=== PATIENT | female | born 2000 | race Caucasian/White ===

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

== ENCOUNTER 2021-09-18 19:03 | Emergency (ER) | payer MEDICAID ==
[2021-09-18] MEDS ORDERED: PROCHLORPERAZINE 10 MG/2ML INJ (COMPAZINE) IM ONE (19:15)
[2021-09-18] MEDS ORDERED: diphenhydrAMINE 50 MG/ML INJ (BENADRYL) IM ONE (19:15)
[2021-09-18] MEDS ORDERED: KETOROLAC 30 MG/ML VIAL IM ONE (19:15)
--- NOTE | 2021-09-18 19:16 | ED Cough/URI ---
General Chief Complaint: COVID19 Suspect/Confirmed Stated Complaint: MIGRAINE,BODY ACHES,NAUSEA Source: patient Exam Limitations: no limitations History of Present Illness Date Seen by Provider: Sep 18, 2021 Time Seen by Provider: 17:14 Initial Comments 21-year-old female with no pertinent past medical history coming in due to generalized body aches, elevated tactile temperature, nausea that all started today. Family member was diagnosed with COVID yesterday, the patient became symptomatic today. She has not been tested yet. Has never had COVID that she knows of and has not been vaccinated. Denies any chest pain, shortness of breath, severe abdominal pain, vomiting, diarrhea, weakness, numbness, dysuria, rash, or any other concerns. Has been eating and drinking less today. Took Tylenol this morning around 8 AM but has not had any other medications besides that. LMP was today Allergies and Home Medications Allergies Coded Allergies: No Known Drug Allergies (Unverified , 08/15/18) Patient Home Medication List Home Medication List Reviewed: Yes Cefdinir (Cefdinir) 300 Mg Capsule, 300 MG PO BID Prescribed by: CATRACHITO OLEARY on 09/18/211946 Divalproex Sodium (Divalproex Sodium) 250 Mg Tablet.dr (Reported) Entered as Reported by: RENNY MOLINA on 10/15/20 153 Metronidazole (Metronidazole) 500 Mg Tablet, 500 MG PO BID Prescribed by: ADRIEN BARDALES on 10/15/20 162 Promethazine HCl (Promethazine Tablet) 25 Mg Tablet, 25 MG PO Q6H PRN for NAUSEA/VOMITING Prescribed by: CATRACHITO OLEARY on 09/18/211946 Review of Systems Review of Systems Constitutional: chills, malaise EENTM: No blurred vision Respiratory: No cough Cardiovascular: No chest pain Gastrointestinal: No abdominal pain; nausea; No vomiting Genitourinary: no symptoms reported Musculoskeletal: other (Myalgias and body aches) Skin: No rash Psychiatric/Neurological: No Symptoms Reported Hematologic/Lymphatic: No Symptoms Reported Immunological/Allergic: no symptoms reported All Other Systems Reviewed Negative Unless Noted: Yes Past Ozipnnb-Yvfxbo-Nbfnbw Hx Patient Social History Tobacco Use?: Yes Tobacco type used: Cigarettes Smoking Status: Current Everyday Smoker Use of E-Cig and/or Vaping dev: No Substance use?: No Alcohol Use?: No Pt feels they are or have been: No Seasonal Allergies Seasonal Allergies: No Past Medical History Surgery/Hospitalization HX: Depression, UTI's Surgeries: No Respiratory: No Cardiac: No Neurological: No Genitourinary: No Gastrointestinal: No Musculoskeletal: No Endocrine: No HEENT: No Cancer: No Psychosocial: No Integumentary: No Blood Disorders: No Physical Exam Vital Signs - First Documented 09/18/21 19:06 Temp 37.7 Pulse 126 Resp 18 B/P (MAP) 104/55 (71) Pulse Ox 97 O2 Delivery Room Air Capillary Refill : Height: 5'4.00" Weight: 198lbs. oz. 89.245856ym; 36.00 BMI Method:Stated General Appearance: WD/WN, no apparent distress Eyes: Bilateral Eye Normal Inspection HEENT: PERRL/EOMI, normal ENT inspection, pharynx normal Neck: non-tender, full range of motion, supple, normal inspection Respiratory: chest non-tender, lungs clear, normal breath sounds, no respiratory distress, no accessory muscle use Cardiovascular: no edema, no murmur, tachycardia Gastrointestinal: normal bowel sounds, non tender, soft; No distended, No guard ing, No rebound Extremities: normal range of motion, non-tender, normal inspection, no pedal edema, no calf tenderness, normal capillary refill Neurologic/Psychiatric: no motor/sensory deficits, alert, normal mood/affect Skin: normal color, warm/dry Lymphatic: no adenopathy Progress/Results/Core Measures Suspected Sepsis SIRS Temperature: Pulse: Respiratory Rate: Blood Pressure / Mean: Results/Orders Lab Results Laboratory Tests Test 09/18/21 19:13 09/18/21 19:18 Range/Units Influenza Type A (RT-PCR) Not Detected Not Detecte Influenza Type B (RT-PCR) Not Detected Not Detecte SARS-CoV-2 RNA (RT-PCR) Not Detected Not Detecte Urine Color DK YELLOW Urine Clarity SL CLOUDY Urine pH 7.5 5-9 Urine Specific [place] 1.015 L 1.016-1.022 Urine Protein TRACE H NEGATIVE Urine Glucose (UA) NEGATIVE NEGATIVE Urine Ketones 3+ H NEGATIVE Urine Nitrite NEGATIVE NEGATIVE Urine Bilirubin 1+ H NEGATIVE Urine Urobilinogen 2.0 < = 1.0 MG/DL Urine Leukocyte Esterase 1+ H NEGATIVE Urine RBC (Auto) 2+ H NEGATIVE Urine RBC 10-25 H /HPF Urine WBC 25-50 H /HPF Urine Squamous Epithelial Cells 2-5 /HPF Urine Crystals NONE /LPF Urine Bacteria FEW H /HPF Urine Casts NONE /LPF Urine Mucus SMALL H /LPF Urine Culture Indicated YES My Orders Orders - CATRACHITO OLEARY MD Urine Bedside (09/18/21 19:07) Influenza A And B By Pcr (09/18/21 19:07) Covid 19 Inhouse Test (09/18/21 19:07) Ketorolac Injection (Toradol Injection) (09/18/21 19:15) Prochlorperazine Injection (Compazine In (09/18/21 19:15) Diphenhydramine Injection (Benadryl Inje (09/18/21 19:15) Ua Culture If Indicated (09/18/21 19:16) Urine Culture (09/18/21 19:18) Cefdinir Capsule (Omnicef Capsule) (09/18/21 20:00) Medications Given in ED Current Medications Medications Dose Ordered Sig/Zach Route Start Time Stop Time Status Last Admin Dose Admin Diphenhydramine HCl 25 mg ONCE ONCE IM 09/18/21 19:15 09/18/21 19:16 DC 09/18/21 19:19 25 MG Ketorolac Tromethamine 15 mg ONCE ONCE IM 09/18/21 19:15 09/18/21 19:16 DC 09/18/21 19:18 15 MG Prochlorperazine Edisylate 10 mg ONCE ONCE IM 09/18/21 19:15 09/18/21 19:16 DC 09/18/21 19:19 10 MG Vital Signs/I&O 09/18/21 19:06 Temp 37.7 Pulse 126 Resp 18 B/P (MAP) 104/55 (71) Pulse Ox 97 O2 Delivery Room Air Capillary Refill : Progress Note : Progress Note 21-year-old female coming in with body aches and general flulike illness symptoms. ABCs were intact and vital stable on presentation although she is mildly tachycardic. She was given IM injections for headache and body aches and symptoms have improved somewhat. test is negative, urinalysis concerning for potential infection so she will be given cefdinir. COVID and flu testing negative, but her symptoms just started and I think with a positive household member I think it is likely she is actually positive. Departure Impression Primary Impression: Influenza-like symptoms Additional Impression: Cystitis Disposition: 01 HOME, SELF-CARE Condition: Stable Departure-Patient Inst. Decision time for Depature: 19:45 Referrals: KATE FORD (PCP) Primary Care Physician [facility] (Family) Primary Care Physician Patient Instructions: Urinary Tract Infections in Adults Add. Discharge Instructions: Your COVID test today is negative and so was your flu test. Your urinalysis does look concerning for infection which can cause flulike symptoms as well. You will be On antibiotics for the next week. It is still very possible that you have COVID and potentially just tested too early. I would take Tylenol or ibuprofen as needed for fever and body aches. Scripts Promethazine HCl (Promethazine Tablet) 25 Mg Tablet 25 MG PO Q6H PRN for NAUSEA/VOMITING for 5 Days, #20 TAB Prov: CATRACHITO OLEARY MD 09/18/21 Cefdinir (Cefdinir) 300 Mg Capsule 300 MG PO BID for 5 Days, #10 CAP 0 Refills Prov: CATRACHITO OLEARY MD 09/18/21 Work/School Note: Work Release Form Date Seen in the Emergency Department: Sep 18, 2021 Return to Work: Sep 23, 2021 Restrictions: Return-No Fever (24hrs), Return-No Vomiting(24hrs) CATRACHITO OLEARY MD Sep 18, 2021 19:16
[2021-09-18 19:21] LABS: CLARITY,URINE SL CLOUDY; GLUCOSE, URINE (UA) NEGATIVE (NEGATIVE); KETONES,URINE 3+ (NEGATIVE); LEUKOCYTE ESTERASE ,URINE 1+ (NEGATIVE); NITRITE,URINE NEGATIVE (NEGATIVE); PH,URINE 7.5 (5-9); PROTEIN,URINE TRACE (NEGATIVE)
[2021-09-18 19:31] LABS: BACTERIA,URINE FEW /HPF; BILIRUBIN,URINE 1+ (NEGATIVE); COLOR,URINE DK YELLOW; WBC,URINE 25-50 /HPF
[2021-09-18] MEDS ORDERED: PROM25TA14 PO (19:47)
[2021-09-18] MEDS ORDERED: CEFD300C3 PO (19:47)
[2021-09-18 19:52] VITALS: BP 104/55
[2021-09-18] MEDS ORDERED: CEFDINIR 300 MG (OMNICEF) CAP PO ONE (20:00)
== END 2021-09-18 19:56 | disposition home or self-care (01) ==
LOC: EDUNIT# 19:03 → ER FS 19:05
DX: R52 Pain, unspecified (principal); R00.0 Tachycardia, unspecified; N30.90 Cystitis, unspecified without hematuria; F17.210 Nicotine dependence, cigarettes, uncomplicated; Z20.822 Contact with and (suspected) exposure to COVID-19; Z28.310 Unvaccinated for COVID-19; Z32.02 Encounter for pregnancy test, result negative
CPT/HCPCS: 81000; 84703; 87088; 87636; 99284

== ENCOUNTER 2021-10-26 22:26 | Emergency (ER) | payer MEDICAID ==
[~2021-10-26] VITALS: Ht 172.7 cm; Wt 101.2 kg
[~2021-10-26 22:26] MED LIST changes: +CEFD300C3 PO; +PROM25TA14 PO
[2021-10-26] MEDS ORDERED: RX-MUPIROCIN (BACTROBAN) 2% OINT 22 GM TUBE TOP STA (22:54)
[2021-10-26] MEDS ORDERED: cefTRIAXone 1,000 MG VIAL IM STA (22:54)
[2021-10-26] MEDS ORDERED: LIDOCAINE 1% INJ 20 ML VIAL INJ ONE (23:00)
--- NOTE | 2021-10-26 23:02 | ED Integumentary General ---
General Chief Complaint: Skin/Wound Problems Stated Complaint: POSS SPIDER BITES/LEGS SWELLING Source: patient, old records History of Present Illness Date Seen by Provider: Oct 26, 2021 Time Seen by Provider: 22:31 Initial Comments 21-year-old female presenting with possible spider bites to her right calf and left calf. She states that she has had 2 areas pop up on her right calf that she noticed yesterday and one area on her left calf. She has had multiple areas like this in the past and usually puts. On the to get them to draw and come to ahead to drain. However today she had tried applying. And she has gotten some drainage from them but they are more red and angry appearing as well as having tenderness to her muscles in the leg. She denies running a fever. She was having body aches and just not feeling well today so she was not able to go to work. She was concerned that she needed antibiotics to help with the wounds heal. Timing/Duration: yesterday Severity: moderate Location: extremities (Bilateral calfs) Possible Cause: no cause identified (Unsure but thinks that may be she had spider bites causing the wounds) Modifying Factors: worse with scratching Associated Symptoms: No blisters; change in skin texture; No edema, No fever, No flushing, No headache, No hives, No jaundice; malaise; No nasal congestion, No numbness, No pallor, No paresthesia, No petechiae, No rash, No sore throat, No swelling/mass/lumps, No tingling Allergies and Home Medications Allergies Coded Allergies: No Known Drug Allergies (Unverified , 08/15/18) Patient Home Medication List Home Medication List Reviewed: Yes Cefdinir (Cefdinir) 300 Mg Capsule, 300 MG PO BID Prescribed by: CATRACHITO OLEARY on 09/18/211946 Divalproex Sodium (Divalproex Sodium) 250 Mg Tablet., (Reported) Entered as Reported by: RENNY MOLINA on 10/15/20 153 Metronidazole (Metronidazole) 500 Mg Tablet, 500 MG PO BID Prescribed by: ADRIEN BARDALES on 10/15/20 162 Promethazine HCl (Promethazine Tablet) 25 Mg Tablet, 25 MG PO Q6H PRN for NAUSEA/VOMITING Prescribed by: CATRACHITO OLEARY on 09/18/211946 Sulfamethoxazole/Trimethoprim (Bactrim Ds Tablet) 1 Each Tablet, 1 EACH PO BID Prescribed by: RICK CORONEL on 10/26/21 3940 Review of Systems Review of Systems Constitutional: No chills, No fever; malaise EENTM: no symptoms reported Respiratory: no symptoms reported Cardiovascular: no symptoms reported Gastrointestinal: no symptoms reported Genitourinary: no symptoms reported Musculoskeletal: see HPI, other (Feels like she has muscle tightness and almost like cramping in her calves where the bites are at) Skin: change in color Psychiatric/Neurological: No Symptoms Reported Endocrine: No Symptoms Reported Past Enawmmq-Koagru-Bjqiah Hx Seasonal Allergies Seasonal Allergies: No Past Medical History Surgery/Hospitalization HX: Depression, UTI's, recurrent abscesses of the skin Surgeries: No Respiratory: No Cardiac: No Neurological: No Genitourinary: No Gastrointestinal: No Musculoskeletal: No Endocrine: No HEENT: No Cancer: No Psychosocial: No Integumentary: No Blood Disorders: No Physical Exam Vital Signs Capillary Refill : General Appearance: WD/WN, no apparent distress HEENT: PERRL/EOMI, pharynx normal Neck: non-tender, full range of motion, supple, normal inspection Cardiovascular: normal peripheral pulses, tachycardia Respiratory: chest non-tender, lungs clear, normal breath sounds, no respiratory distress, no accessory muscle use Neurologic/Psychiatric: alert, oriented x 3 Skin: warm/dry Skin Problem Location: lower extremities Skin Problem Character: drainage, erythema, tenderness, warm, other (Blistered area that is draining within the erythematous area on her right leg and left leg) Progress/Results/Core Measures Results/Orders My Orders Orders - RICK CORONEL MD Ceftriaxone (Rocephin) (10/26/21 22:54) Lidocaine 1% Inj 20 Ml (Xylocaine 1% Inj (10/26/21 23:00) Rx-Mupirocin 2% Oint (Rx-Bactroban) (10/26/21 22:54) Wound Culture (10/26/21 22:55) Ibuprofen Tablet (Motrin Tablet) (10/26/21 23:03) Progress Progress Note : Progress Note Since she states that she is scared of needles and wants minimal needles involved and she is already having drainage from the wounds will clean the skin with chlorhexidine and then obtain a wound culture of the drainage. Counseled on starting with an IM shot of antibiotics and continuing with oral antibiotics at home. Advised to apply antibiotic ointment twice a day and will use mupirocin in case there is any staph. Departure Impression Primary Impression: Cutaneous abscess of right lower extremity Additional Impression: Cutaneous abscess of left lower extremity Disposition: HOME, SELF-CARE Condition: Stable Departure-Patient Inst. Decision time for Depature: 23:03 Referrals: KATE FORD (PCP) Primary Care Physician [facility] (Family) Primary Care Physician Patient Instructions: Boil, Adult ED, Cellulitis (Skin Infection), Adult (DC) Add. Discharge Instructions: Apply the mupirocin or Bactroban antibiotic ointment to the draining areas twice a day for the next 10 days. Take the Bactrim sulfa antibiotic twice a day for the next 10 days to treat for cellulitis and infection with abscesses. You could still apply heat with a hot pack for 5 to 10 minutes every few hours as needed to help draw the areas and help with drainage. If having continued symptoms or not improving you could return or check with the clinic about possible IV antibiotics. The wound culture from today should be back in 2 to 3 days and if a different antibiotic is needed you will get called. All discharge instructions reviewed with patient and/or family. Voiced understanding. Scripts Sulfamethoxazole/Trimethoprim (Bactrim Ds Tablet) 1 Each Tablet 1 EACH PO BID for cellulitis/abscess for 10 Days, #20 TAB 0 Refills Prov: RICK CORONEL MD 10/26/21 Work/School Note: Work Release Form Date Seen in the Emergency Department: Oct 26, 2021 Return to Work: Oct 27, 2021 Restrictions: No Restrictions Images Extremities-Lower 1 - Cellulitis (cellulitis with abscess right medial calf with serous drainage. tender to palpation and warm to touch) 2 - Cellulitis (cellulitis with abscess right medial calf with serous drainage. tender to palpation and warm to touch) 3 - Cellulitis (cellulitis with abscess right medial calf with serous drainage. tender to palpation and warm to touch) RICK CORONEL MD Oct 26, 2021 23:02
[2021-10-26] MEDS ORDERED: IBUPROFEN 800 MG (MOTRIN) TAB PO STA (23:03)
[2021-10-26] MEDS ORDERED: SULF1TAB38 PO (23:08)
[2021-10-26 23:19] VITALS: BP 128/82
== END 2021-10-26 23:19 | disposition home or self-care (01) ==
LOC: EDUNIT# 22:26 → ER FS 22:30
DX: L02.416 Cutaneous abscess of left lower limb (principal); L02.415 Cutaneous abscess of right lower limb; Z28.310 Unvaccinated for COVID-19
CPT/HCPCS: 87070; 87077; 87205; 99284

== ENCOUNTER 2022-06-18 16:40 | Emergency (ER) | payer MEDICAID ==
[2022-06-18 16:45] VITALS: BP 136/84
[2022-06-18 18:19] LABS: CLARITY,URINE SL CLOUDY; GLUCOSE, URINE (UA) NEGATIVE (NEGATIVE); KETONES,URINE 3+ (NEGATIVE); LEUKOCYTE ESTERASE ,URINE NEGATIVE (NEGATIVE); NITRITE,URINE NEGATIVE (NEGATIVE); PH,URINE 5.5 (5-9); PROTEIN,URINE NEGATIVE (NEGATIVE)
[2022-06-18 18:20] LABS: COLOR,URINE DARK YELLOW
[2022-06-18 18:25] LABS: BASOPHILS % (AUTO) 0 % (0-10); EOSINOPHILS # (AUTO) 0.1 10^3/uL (0.0-0.3); EOSINOPHILS % (AUTO) 1 % (0-10); HEMATOCRIT 42 % (35-52); HEMOGLOBIN 14.3 g/dL (11.5-16.0); LYMPHOCYTES # (AUTO) 2.2 10^3/uL (1.0-4.0); LYMPHOCYTES % (AUTO) 34 % (12-44); MEAN CORPUSCULAR HEMOGLOBIN 28 pg (25-34); MEAN CORPUSCULAR HGB CONC 34 g/dL (32-36); MEAN CORPUSCULAR VOLUME 82 fL (80-99); MEAN PLATELET VOLUME 9.7 fL (9.0-12.2); MONOCYTES # (AUTO) 0.4 10^3/uL (0.0-1.0); MONOCYTES % (AUTO) 6 % (0-12); NEUTROPHILS # (AUTO) 3.8 10^3/uL (1.8-7.8); NEUTROPHILS % (AUTO) 59 % (42-75); PLATELET COUNT 239 10^3/uL (130-400); WHITE BLOOD COUNT 6.4 10^3/uL (4.3-11.0)
[2022-06-18 18:35] LABS: BACTERIA,URINE FEW /HPF; SQUAMOUS EPITHELIAL CELL,UR 25-50 /HPF
[2022-06-18 18:36] LABS: BILIRUBIN,URINE 1+ (NEGATIVE)
--- NOTE | 2022-06-18 19:29 | ED General ---
General Chief Complaint: Abdominal/GI Problems Stated Complaint: ABD PAIN Nursing Triage Note: PT REPORTS CRAMPING SINCE THURSDAY NIGHT. REPORTS HER BREAST ARE SORE AND SHE NOT SURE IF SHE COULD BE . SHE IS SPOTTING BLOOD. Source of Information: Patient Exam Limitations: No Limitations History of Present Illness Date Seen by Provider: Jun 18, 2022 Time Seen by Provider: 18:08 Initial Comments This 22-year-old young lady presents to the emergency room with cramps in her back, pelvis, and hips that started almost a week ago. She has occasional waves of nausea. She reports breast tenderness to palpation. Her LMP was May 16 and she is uncertain about . She has had spotting and mucus when wiping after going to the bathroom. She denies any other vaginal discharge or vaginal pain. She has not had pain with intercourse or dysuria. She denies any urinary habit changes. Abdominal discomfort is intermittent and described as a burning sensation. She presents a list of questions from her mother regarding various health conditions including appendicitis, cholecystitis, etc. Allergies and Home Medications Allergies Coded Allergies: No Known Drug Allergies (Unverified , 08/15/18) Patient Home Medication List Home Medication List Reviewed: Yes Cefdinir (Cefdinir) 300 Mg Capsule, 300 MG PO BID Prescribed by: CATRACHITO OLEARY on 09/18/211946 Divalproex Sodium (Divalproex Sodium) 250 Mg Tablet., (Reported) Entered as Reported by: RENNY MOLINA on 10/15/20 1531 Metronidazole (Metronidazole) 500 Mg Tablet, 500 MG PO BID Prescribed by: ADRIEN BARDALES on 10/15/20 1621 Promethazine HCl (Promethazine Tablet) 25 Mg Tablet, 25 MG PO Q6H PRN for NAUSEA/VOMITING Prescribed by: CATRACHITO OLEARY on 09/18/211946 Sulfamethoxazole/Trimethoprim (Bactrim Ds Tablet) 1 Each Tablet, 1 EACH PO BID Prescribed by: RICK CORONEL on 10/26/21 8938 Review of Systems Review of Systems Constitutional: no symptoms reported EENTM: no symptoms reported Respiratory: no symptoms reported Cardiovascular: no symptoms reported Gastrointestinal: see HPI Genitourinary: see HPI : No LMP: May 16, 2022 Musculoskeletal: no symptoms reported Skin: no symptoms reported Psychiatric/Neurological: No Symptoms Reported Hematologic/Lymphatic: No Symptoms Reported Immunological/Allergic: no symptoms reported Past Bofqoiz-Gxodzm-Kcxgkm Hx Patient Social History Tobacco Use?: Yes Tobacco type used: Cigarettes Smoking Status: Current Everyday Smoker Use of E-Cig and/or Vaping dev: Yes E-Cig or Vaping type used: Nicotine Use of E-Cig and/or Vaping Nick: Current Everyday User Substance use?: Yes Substance type: Marijuana Alcohol Use?: Yes Alcohol type: Wine Alcohol Frequency: Several times a month Pt feels they are or have been: No Immunizations Up To Date First/Initial COVID19 Vaccinat: unvaccinated Second COVID19 Vaccination Kendrick: unvaccinated Third COVID19 Vaccination Date: unvaccinated Seasonal Allergies Seasonal Allergies: No Past Medical History Surgery/Hospitalization HX: Depression, UTI's, recurrent abscesses of the skin Surgeries: No Respiratory: No Cardiac: No Neurological: No : No Last Menstrual Period: May 16, 2022 Female Reproductive Disorders: Menstrual Problems (irregular periods) Genitourinary: No Gastrointestinal: No Musculoskeletal: No Endocrine: No HEENT: No Cancer: No Psychosocial: No Integumentary: No Blood Disorders: No Physical Exam Vital Signs Vital Signs - First Documented 06/18/22 16:45 Temp 35.4 Pulse 105 Resp 16 B/P (MAP) 136/84 (101) Pulse Ox 98 O2 Delivery Room Air Capillary Refill : Less Than 3 Seconds Height, Weight, BMI Height: 5'4.00" Weight: 198lbs. oz. 89.881520rk; 33.00 BMI Method:Stated General Appearance: No Apparent Distress, WD/WN, Obese HEENT: PERRL/EOMI, Normal ENT Inspection Neck: Normal Inspection Respiratory: Lungs Clear, Normal Breath Sounds, No Accessory Muscle Use Cardiovascular: Regular Rate, Rhythm, No Edema, No Murmur Gastrointestinal: Non Tender, Soft; No Distended Extremity: Normal Inspection, No Pedal Edema Neurologic/Psychiatric: Alert, Oriented x3, No Motor/Sensory Deficits, Normal Mood/Affect Skin: Normal Color, Warm/Dry Progress/Results/Core Measures Suspected Sepsis SIRS Temperature: Pulse: 105 Respiratory Rate: 16 Laboratory Tests 06/18/22 18:20: White Blood Count 6.4 Blood Pressure 136 /84 Mean: 101 Laboratory Tests 06/18/22 18:20: Platelet Count 239 Results/Orders Lab Results Laboratory Tests Test 06/18/22 17:03 06/18/22 18:20 Range/Units Urine Color DARK YELLOW Urine Clarity SL CLOUDY Urine pH 5.5 5-9 Urine Specific [place] >=1.030 1.016-1.022 Urine Protein NEGATIVE NEGATIVE Urine Glucose (UA) NEGATIVE NEGATIVE Urine Ketones 3+ H NEGATIVE Urine Nitrite NEGATIVE NEGATIVE Urine Bilirubin 1+ H NEGATIVE Urine Urobilinogen 0.2 < = 1.0 MG/DL Urine Leukocyte Esterase NEGATIVE NEGATIVE Urine RBC (Auto) 3+ H NEGATIVE Urine RBC 2-5 H /HPF Urine WBC 5-10 H /HPF Urine Squamous Epithelial Cells 25-50 H /HPF Urine Crystals NONE /LPF Urine Bacteria FEW H /HPF Urine Casts NONE /LPF Urine Mucus MODERATE H /LPF Urine Culture Indicated NO White Blood Count 6.4 4.3-11.0 10^3/uL Red Blood Count 5.05 3.80-5.11 10^6/uL Hemoglobin 14.3 11.5-16.0 g/dL Hematocrit 42 35-52 % Mean Corpuscular Volume 82 80-99 fL Mean Corpuscular Hemoglobin 28 25-34 pg Mean Corpuscular Hemoglobin Concent 34 32-36 g/dL Red Cell Distribution Width 12.0 10.0-14.5 % Platelet Count 239 130-400 10^3/uL Mean Platelet Volume 9.7 9.0-12.2 fL Immature Granulocyte % (Auto) 0 % Neutrophils (%) (Auto) 59 42-75 % Lymphocytes (%) (Auto) 34 12-44 % Monocytes (%) (Auto) 6 0-12 % Eosinophils (%) (Auto) 1 0-10 % Basophils (%) (Auto) 0 0-10 % Neutrophils # (Auto) 3.8 1.8-7.8 10^3/uL Lymphocytes # (Auto) 2.2 1.0-4.0 10^3/uL Monocytes # (Auto) 0.4 0.0-1.0 10^3/uL Eosinophils # (Auto) 0.1 0.0-0.3 10^3/uL Basophils # (Auto) 0.0 0.0-0.1 10^3/uL Immature Granulocyte # (Auto) 0.0 0.0-0.1 10^3/uL Serum Test, Qualitative NEGATIVE NEGATIVE My Orders Orders - KIRILL CURTIS MD Cbc With Automated Diff (06/18/22 18:08) Hcg,Qualitative Serum (06/18/22 18:08) Ua Culture If Indicated (06/18/22 18:08) Ed Iv/Invasive Line Start (06/18/22 18:08) Vital Signs/I&O 06/18/22 16:45 Temp 35.4 Pulse 105 Resp 16 B/P (MAP) 136/84 (101) Pulse Ox 98 O2 Delivery Room Air Capillary Refill : Less Than 3 Seconds Blood Pressure Mean: 101 Progress Note : Progress Note Patient's abdominal and pelvic symptoms are transient and migratory. She describes symptoms more consistent with a viral syndrome. Serum test was negative. CBC was unremarkable by my interpretation. Urinalysis was reviewed by me. There was a small amount of WBC and bacteria in the specimen but it appeared contaminated as evidenced by epithelial cells. Patient is stable for discharge. See discharge instructions for further discussion. Departure Impression Primary Impression: Nausea alone Additional Impressions: Abdominal cramping Vaginal spotting Disposition: HOME, SELF-CARE Condition: Improved Departure-Patient Inst. Decision time for Depature: 19:27 Referrals: KATE FORD (PCP) Primary Care Physician [facility] (Family) Primary Care Physician Patient Instructions: Abdominal Pain, Adult ED Add. Discharge Instructions: Drink plenty of clear liquids to stay well-hydrated. Eat a bland diet and small quantities until your symptoms resolved. You may take Tylenol (acetaminophen) up to 1000 mg every 6 hours as needed for pain. Your pain may be related to menstrual cycle syndromes and/or a viral illness. However, if symptoms are escalating or if you develop new significant symptoms such as uncontrollable vomiting or fever, please return to the emergency room. If your symptoms are still present by Thursday, please follow-up with your primary care provider. You may use the nausea medicine you were previously prescribed as directed. Call your doctor with questions or concerns. All discharge instructions reviewed with patient and/or family. Voiced understanding. KIRILL CURTIS MD Jun 18, 2022 19:29
== END 2022-06-18 19:40 | disposition home or self-care (01) ==
LOC: EDUNIT# 16:40 → ER FS 16:42
DX: R10.9 Unspecified abdominal pain (principal); R11.0 Nausea; N93.9 Abnormal uterine and vaginal bleeding, unspecified; F17.210 Nicotine dependence, cigarettes, uncomplicated; F17.290 Nicotine dependence, other tobacco product, uncomplicated; Z28.310 Unvaccinated for COVID-19
CPT/HCPCS: 36415; 81000; 84703; 85025; 99282

== ENCOUNTER 2022-11-01 14:59 | Emergency (ER) | payer MEDICAID ==
[~2022-11-01] VITALS: Ht 162.6 cm; Wt 96.4 kg
[2022-11-01 15:11] VITALS: BP 123/75
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
--- NOTE | 2022-11-01 16:05 | Diagnostic Imaging Report ---
EXAMINATION: CT head without contrast. TECHNIQUE: Multiple contiguous axial images were obtained through the brain without the use of intravenous contrast. All CT scans use one or more of the following dose optimizing techniques: automated exposure control, MA and/or KvP adjustment based on patient size and exam type or iterative reconstruction. HISTORY: Headache. COMPARISON: None available. FINDINGS: The gonzáles-white matter differentiation is normal. No mass effect or midline shift. The ventricles are normal in size and configuration. Basilar cisterns are patent. There is no intra-axial or extra-axial fluid collection. There is no intracranial hemorrhage. The orbits are normal. Paranasal sinuses are normal. Mastoid air cells are clear. No soft tissue abnormality is seen. No osseus lesion or fracture is seen. IMPRESSION: No acute intracranial abnormality. Dictated by: Dictated on workstation # [id number]
[2022-11-01] MEDS ORDERED: KETOROLAC INJ 30 MG/ML VIAL IM ONE (16:30)
== END 2022-11-01 16:37 | disposition home or self-care (01) ==
LOC: EDUNIT# 14:59 → ER FS 15:01
DX: S06.0X0A Concussion without loss of consciousness, initial encounter (principal); S29.011A Strain of muscle and tendon of front wall of thorax, initial encounter; R40.2362 Coma scale, best motor response, obeys commands, at arrival to emergency department; R40.2252 Coma scale, best verbal response, oriented, at arrival to emergency department; R40.2142 Coma scale, eyes open, spontaneous, at arrival to emergency department; Z28.310 Unvaccinated for COVID-19; V49.9XXA Car occupant (driver) (passenger) injured in unspecified traffic accident, initial encounter; Y92.410 Unspecified street and highway as the place of occurrence of the external cause
CPT/HCPCS: 70450; 71111